=== PATIENT | female | born 1945 | race Caucasian/White ===

== ENCOUNTER 2020-07-06 17:53 | Emergency (ER) | payer MEDICARE ==
[2020-07-06] MEDS ORDERED: Sodium Chloride 0.9% 1000 ML 1,000 ML IV STA (18:22)
[2020-07-06] MEDS ORDERED: Sodium Chloride 0.9% 1000 ML 1,000 ML ONE (18:30)
--- NOTE | 2020-07-06 18:31 | ERPHSYRPT ---
- History of Present Illness Source: patient, family, EMS Exam Limitations: no limitations Patient Subjective Stated Complaint: Pt states "I was just sitting there and all a sudden felt weak. I had no pain, no shortness of breath, I just feel weak all over." Triage Nursing Assessment: Pt arrived via [facility]. Pt placed in room 4. Pt alert and oriented X 3, skin pwd Pt able to speak in clear full sentences pt in no apparent respiratory distress. Pt able to move all extremeties, no facial droop noted. Timing/Duration: today, resolved prior to arrival, sudden, improved Severity: moderate Modifying Factors: Improves With: nothing Associated Symptoms: weakness Hx Tetanus, Diphtheria Vaccination/Date Given: No Hx Influenza Vaccination/Date Given: Yes Hx Pneumococcal Vaccination/Date Given: Yes Immunizations Up to Date: Yes <LAURIE SINGH - Last Filed: 07/06/20 18:37> <ASHLEE RIVERA - Last Filed: 07/06/20 22:30> - History of Present Illness Time Seen by Provider: 07/06/20 18:16 Physician History: 74 years old female with history of hypertension, hyperlipidemia, coronary artery disease status post stenting, tobacco abuse, COPD presented in the ER via EMS with chief complaint of sudden onset generalized weakness with feeling of dizziness/lightheadedness as if she was going to pass out. She did not have any loss of consciousness although. Patient report it happened while she was sitting and all of a sudden she got sweaty and lightheaded. She checked her blood pressure at home and it was 90/40 which was kind of low for her. When EMS presentation her blood pressure is in 100 and after few minutes she started to feel better. She still feels generally weak but denies any focal numbness tingling or weakness. Denies any headache, blurry vision, difficulty speech, chest pain palpitations or shortness of breath before or after the episode of presyncope. She does have chronic sinus infection with some productive smoker cough which is not any worse than usual. (LAURIE SINGH) Allergies/Adverse Reactions: clarithromycin [From Biaxin] Allergy (Verified 04/19/16 10:45) codeine Allergy (Verified 04/19/16 10:45) Home Medications: Aspirin [Aspirin EC] 81 mg PO DAILY 08/13/15 [History] Furosemide 80 mg PO DAILY 08/13/15 [History] Isosorbide Mononitrate [Isosorbide Mononitrate ER] 30 mg PO HS 08/13/15 [History] Levothyroxine Sodium 137.5 mcg PO HS 08/13/15 [History] Magnesium Oxide 400 mg [Mag-Ox 400] 400 mg PO DAILY 08/13/15 [History] Metoprolol Succinate 25 mg Xl* [Toprol-Xl 25MG Tablets] 50 mg PO DAILY 08/13/15 [History] Multivitamin [Multivitamins] 1 each PO DAILY 08/13/15 [History] Potassium Chloride 20 Meq [Klor-Con 20 MEQ] 20 meq PO HS 08/13/15 [History] Vitamin E 400 Units [Vitamin E 400 UNIT SOFTGEL] 400 unit PO HS 08/13/15 [History] trandolapriL [Trandolapril] 4 mg PO DAILY 08/13/15 [History] Allopurinol 100 mg [Zyloprim 100 mg] 100 mg PO DAILY 03/29/16 [History] Hydralazine HCl 25 mg PO BID 03/29/16 [History] Metformin HCl 500 mg [Glucophage 500 MG] 500 mg PO BID 03/29/16 [History] Alendronate Sodium 70 mg [Fosamax 70 MG] 70 mg PO WEEKLY 07/06/20 [History] Amlodipine Besylate 5 mg [Norvasc 5 mg] 5 mg PO DAILY 07/06/20 [History] Atorvastatin Calcium 20 mg PO HS 07/06/20 [History] Biotin 5,000 mcg PO DAILY 07/06/20 [History] Cholecalciferol (Vitamin D3) [Vitamin D3] 25 mcg PO HS 07/06/20 [History] Duloxetine HCl 60 mg PO DAILY 07/06/20 [History] Ibuprofen 200 mg [Motrin 200 mg] 600 mg PO DAILY 07/06/20 [History] Ropinirole HCl [Ropinirole ER] 1 mg PO HS 07/06/20 [History] Travel Risk - International Travel Have you traveled outside of the country in past 3 weeks: No - Coronavirus Screening Are you exhibiting any of the following symptoms?: No Close contact with a COVID-19 positive Pt in past 14-21 Days: No <LAURIE SINGH - Last Filed: 07/06/20 18:37> - Review of Systems Constitutional: Weakness Eyes: No Symptoms Ears, Nose, & Throat: No Symptoms Respiratory: Cough Cardiac: No Symptoms Abdominal/Gastrointestinal: No Symptoms Genitourinary Symptoms: No Symptoms Musculoskeletal: No Symptoms Skin: No Symptoms Neurological: No Symptoms Psychological: No Symptoms Endocrine: No Symptoms Hematologic/Lymphatic: No Symptoms Immunological/Allergic: No Symptoms <LAURIE SINGH - Last Filed: 07/06/20 18:37> - Past Medical History Pertinent Past Medical History: Yes Neurological History: No Pertinent History ENT History: No Pertinent History Cardiac History: High Cholesterol, Hypertension Respiratory History: COPD, Other Endocrine Medical History: Diabetes Type II, Hypothyroidism Musculoskeletal History: No Pertinent History, Rheumatoid Arthritis GI Medical History: No Pertinent History History: No Pertinent History Psycho-Social History: No Pertinent History Female Reproductive Disorders: No Pertinent History Other Medical History: back pain, spina bifoda, cancer of the larnyx with radiation 2005 - Past Surgical History Past Surgical History: Yes Neuro Surgical History: No Pertinent History Cardiac: Cardiac Catheterization, Cardiac Stent Respiratory: No Pertinent History Gastrointestinal: Cholecystectomy Genitourinary: No Pertinent History Musculoskeletal: Orthopedic Surgery Female Surgical History: Hysterectomy, Tubal Ligation Other Surgical History: recontruction back, left knee, titanium elbow left arm, bladder anchors, carpel tunnel bilateral - Social History Smoking Status: Current every day smoker How long have you smoked: years Exposure to second hand smoke: Yes Drug Use: none Patient Lives Alone: No - Female History Hx Now: No <LAURIE SINGH - Last Filed: 07/06/20 18:37> - Physical Exam General Appearance: no apparent distress, alert Eye Exam: PERRL/EOMI, eyes nml inspection Ears, Nose, Throat Exam: TMs normal, pharyngeal erythema Neck Exam: normal inspection, non-tender, supple, full range of motion Respiratory Exam: normal breath sounds, lungs clear Cardiovascular Exam: regular rate/rhythm, normal heart sounds Gastrointestinal/Abdomen Exam: soft, normal bowel sounds, No tenderness, No distention Back Exam: normal inspection, normal range of motion Extremity Exam: normal inspection, normal range of motion Neurologic Exam: alert, oriented x 3, cooperative, battery loader II-XII nml as tested, normal mood/affect, nml cerebellar function, sensation nml Skin Exam: normal color SpO2 Interpretation: normal SpO2: 98 <LAURIE SINGH - Last Filed: 07/06/20 18:37> - Nursing Vital Signs Nursing Vital Signs: Initial Vital Signs Temperature 98.8 F 07/06/20 17:54 Pulse Rate 62 07/06/20 17:54 Respiratory Rate 20 07/06/20 17:54 Blood Pressure 110/62 07/06/20 17:54 O2 Sat by Pulse Oximetry 98 07/06/20 17:54 Pain Scale Pain Intensity 2 - Course Nursing assessment & vital signs reviewed: Yes EKG Interpreted by Me: RATE (60), Sinus Rhythm, Right Bundle Branch Block, Non- specific ST Changes - Radiology Exams Chest X-ray Interpretation: Teleradiologist Report (Questionable right lower lung airspace pneumonia. PA and lateral view would be helpful for further characterization if clinical symptoms dictate.) - CT Exams Abdomen/Pelvis CT Interpretation: Tele-radiologist Report (No evidence of acute intra-abdominal or pelvic pathology. See rest of report.) Head CT Interpretation: Tele-radiologist Report (No acute intracranial abnormality.) Chest CT Interpretation: Tele-radiologist Report (No evidence of central pulmonary embolus. There is breathing artifact which limits sensitivity of this examination to distal small emboli. Indeterminate consolidation in the right infrahilar region likely representing atelectasis. minimal bibasilar atelectasis.) <ASHLEE RIVERA - Last Filed: 07/06/20 22:30> Ordered Tests: Active Orders 24 hr Category Date Time Status Sales Support Specialist STAT Care 07/06/20 18:23 Active EKG-ER Only STAT Care 07/06/20 18:22 Active IV Insertion STAT Care 07/06/20 18:22 Active Orthostatic Vital Signs STAT Care 07/06/20 18:24 Active Oxygen-ED Only Nasal Cannula 2 lpm Care 07/06/20 19:52 Active Pulse Oximetry (ED) STAT Care 07/06/20 19:52 Active ABDOMEN AND PELVIS W/0 CONTRAS [CT] Stat Exams 07/06/20 19:40 Taken CHEST 1 VIEW (PORTABLE) Stat Exams 07/06/20 18:23 Taken CHEST WITH CONTRAST [CT] Stat Exams 07/06/20 20:21 Taken HEAD WITHOUT CONTRAST [CT] Stat Exams 07/06/20 19:42 Taken AMYLASE Stat Lab 07/06/20 18:30 Completed BLOOD CULTURE Stat Lab 07/06/20 20:11 Ordered CBC W DIFF Stat Lab 07/06/20 18:39 Completed CMP Stat Lab 07/06/20 18:39 Completed CULTURE,SPUTUM Stat Lab 07/06/20 22:18 Received CULTURE,URINE Stat Lab 07/06/20 18:44 Received D-DIMER QUANTITATIVE Stat Lab 07/06/20 18:30 Completed LIPASE Stat Lab 07/06/20 18:30 Completed Lactic Acid Stat Lab 07/06/20 18:35 Completed MAGNESIUM Stat Lab 07/06/20 18:39 Completed NT PRO BNP Stat Lab 07/06/20 18:39 Completed TROPONIN Q3H Lab 07/06/20 18:39 Completed TROPONIN Q3H Lab 07/06/20 20:11 Completed TROPONIN Q3H Lab 07/07/20 00:30 Ordered TROPONIN Q3H Lab 07/07/20 03:30 Ordered TROPONIN Q3H Lab 07/07/20 06:30 Ordered UA W/RFX UR CULTURE Stat Lab 07/06/20 18:44 Completed Medication Summary Discontinued Medications Generic Name Dose Route Start Last Admin Trade Name Freq PRN Reason Stop Dose Admin Sodium Chloride 1,000 mls @ 499 mls/hr 07/06/20 18:22 07/06/20 20:49 Sodium Chloride 0.9% 1000 Ml IV 07/06/20 20:22 Infused .Q2H1M STA Infusion Sodium Chloride Confirm 07/06/20 18:30 Sodium Chloride 0.9% 1000 Ml Administered 07/06/20 18:31 Dose 1,000 mls @ ud .ROUTE .STK-MED ONE Levofloxacin/Dextrose 750 mg in 150 mls @ 100 mls/hr 07/06/20 18:48 07/06/20 20:50 Levofloxacin 750mg/150ml D5w IV 07/06/20 20:17 Infused STAT STA Infusion Levofloxacin/Dextrose Confirm 07/06/20 18:56 Levofloxacin 750mg/150ml D5w Administered 07/06/20 18:57 Dose 750 mg in 150 mls @ ud IV .STK-MED ONE Lab/Rad Data: Laboratory Result Diagrams 07/06/20 18:39 07/06/20 18:39 Laboratory Results 07/06/20 07/06/20 07/06/20 Range/Units 20:11 18:44 18:39 WBC (4.0-10.5) K/mm3 RBC (4.1-5.4) M/mm3 Hgb (12.0-16.0) gm/dl Hct (35-47) % MCV (78-100) fl MCH (26-32) pg MCHC (32-36) g/dl RDW (11.5-14.0) % Plt Count (150-450) K/mm3 MPV (7.5-11.0) fl Gran % (36.0-66.0) % Eos # (Auto) (0-0.5) Absolute Lymphs (auto) (1.0-4.6) Absolute Monos (auto) (0.0-1.3) Lymphocytes % (24.0-44.0) % Monocytes % (0.0-12.0) % Eosinophils % (0.00-5.0) % Basophils % (0.0-0.4) % Absolute Granulocytes (1.4-6.9) Basophils # (0-0.4) D-Dimer (215-500) ng/mL Sodium (137-145) mmol/L Potassium (3.5-5.1) mmol/L Chloride (98-107) mmol/L Carbon Dioxide (22-30) mmol/L Anion Gap (5-15) MEQ/L BUN (7-17) mg/dL Creatinine (0.52-1.04) mg/dL Estimated GFR ML/MIN Glucose (74-106) mg/dL Lactic Acid (0.4-2.0) Calcium (8.4-10.2) mg/dL Magnesium (1.6-2.3) mg/dL Total Bilirubin (0.2-1.3) mg/dL AST (14-36) U/L ALT (0-35) U/L Alkaline Phosphatase (38-126) U/L Troponin I < 0.012 < 0.012 (0.000-0.034) ng/mL NT-Pro-B Natriuret Pep (0-900) pg/mL Serum Total Protein (6.3-8.2) g/dL Albumin (3.5-5.0) g/dL Amylase (30-110) U/L Lipase (23-300) U/L Urine Color YELLOW (YELLOW) Urine Appearance SLIGHTLY CLOUDY (CLEAR) Urine pH 6.0 (5-6) Ur Specific [place] 1.016 (1.005-1.025) Urine Protein 30 (Negative) Urine Ketones NEGATIVE (NEGATIVE) Urine Blood SMALL (0-5) Gustavo/ul Urine Nitrite NEGATIVE (NEGATIVE) Urine Bilirubin NEGATIVE (NEGATIVE) Urine Urobilinogen NEGATIVE (0-1) mg/dL Ur Leukocyte Esterase NEGATIVE (NEGATIVE) Urine WBC (Auto) 0-2 (0-5) /HPF Urine RBC (Auto) 0-2 (0-2) /HPF U Hyaline Cast (Auto) 11-25 (0-2) /LPF U Epithel Cells (Auto) FEW (FEW) /HPF Urine Bacteria (Auto) NONE SEEN (NEGATIVE) /HPF Other Casts (Auto) NEGATIVE (NEGATIVE) /LPF Urine Mucus (Auto) SLIGHT (NEGATIVE) /HPF Urine Culture Reflexed YES (NO) Urine Glucose NEGATIVE (NEGATIVE) mg/dL 07/06/20 07/06/20 07/06/20 Range/Units 18:39 18:39 18:35 WBC 10.1 (4.0-10.5) K/mm3 RBC 3.84 L (4.1-5.4) M/mm3 Hgb 10.6 L (12.0-16.0) gm/dl Hct 34.6 L (35-47) % MCV 90.1 (78-100) fl MCH 27.6 (26-32) pg MCHC 30.6 L (32-36) g/dl RDW 14.0 (11.5-14.0) % Plt Count 195 (150-450) K/mm3 MPV 10.9 (7.5-11.0) fl Gran % 87.1 H (36.0-66.0) % Eos # (Auto) 0.06 (0-0.5) Absolute Lymphs (auto) 0.87 L (1.0-4.6) Absolute Monos (auto) 0.36 (0.0-1.3) Lymphocytes % 8.6 L (24.0-44.0) % Monocytes % 3.6 (0.0-12.0) % Eosinophils % 0.6 (0.00-5.0) % Basophils % 0.1 (0.0-0.4) % Absolute Granulocytes 8.80 H (1.4-6.9) Basophils # 0.01 (0-0.4) D-Dimer (215-500) ng/mL Sodium 138 (137-145) mmol/L Potassium 4.0 (3.5-5.1) mmol/L Chloride 107 (98-107) mmol/L Carbon Dioxide 25 (22-30) mmol/L Anion Gap 10.0 (5-15) MEQ/L BUN 15 (7-17) mg/dL Creatinine 0.75 (0.52-1.04) mg/dL Estimated GFR > 60.0 ML/MIN Glucose 102 (74-106) mg/dL Lactic Acid 1.6 (0.4-2.0) Calcium 9.0 (8.4-10.2) mg/dL Magnesium 2.3 (1.6-2.3) mg/dL Total Bilirubin 0.20 (0.2-1.3) mg/dL AST 19 (14-36) U/L ALT 10 (0-35) U/L Alkaline Phosphatase 78 (38-126) U/L Troponin I (0.000-0.034) ng/mL NT-Pro-B Natriuret Pep 1290 H (0-900) pg/mL Serum Total Protein 6.6 (6.3-8.2) g/dL Albumin 3.6 (3.5-5.0) g/dL Amylase (30-110) U/L Lipase (23-300) U/L Urine Color (YELLOW) Urine Appearance (CLEAR) Urine pH (5-6) Ur Specific [place] (1.005-1.025) Urine Protein (Negative) Urine Ketones (NEGATIVE) Urine Blood (0-5) Gustavo/ul Urine Nitrite (NEGATIVE) Urine Bilirubin (NEGATIVE) Urine Urobilinogen (0-1) mg/dL Ur Leukocyte Esterase (NEGATIVE) Urine WBC (Auto) (0-5) /HPF Urine RBC (Auto) (0-2) /HPF U Hyaline Cast (Auto) (0-2) /LPF U Epithel Cells (Auto) (FEW) /HPF Urine Bacteria (Auto) (NEGATIVE) /HPF Other Casts (Auto) (NEGATIVE) /LPF Urine Mucus (Auto) (NEGATIVE) /HPF Urine Culture Reflexed (NO) Urine Glucose (NEGATIVE) mg/dL 07/06/20 07/06/20 Range/Units 18:30 18:30 WBC (4.0-10.5) K/mm3 RBC (4.1-5.4) M/mm3 Hgb (12.0-16.0) gm/dl Hct (35-47) % MCV (78-100) fl MCH (26-32) pg MCHC (32-36) g/dl RDW (11.5-14.0) % Plt Count (150-450) K/mm3 MPV (7.5-11.0) fl Gran % (36.0-66.0) % Eos # (Auto) (0-0.5) Absolute Lymphs (auto) (1.0-4.6) Absolute Monos (auto) (0.0-1.3) Lymphocytes % (24.0-44.0) % Monocytes % (0.0-12.0) % Eosinophils % (0.00-5.0) % Basophils % (0.0-0.4) % Absolute Granulocytes (1.4-6.9) Basophils # (0-0.4) D-Dimer 852 H* (215-500) ng/mL Sodium (137-145) mmol/L Potassium (3.5-5.1) mmol/L Chloride (98-107) mmol/L Carbon Dioxide (22-30) mmol/L Anion Gap (5-15) MEQ/L BUN (7-17) mg/dL Creatinine (0.52-1.04) mg/dL Estimated GFR ML/MIN Glucose (74-106) mg/dL Lactic Acid (0.4-2.0) Calcium (8.4-10.2) mg/dL Magnesium (1.6-2.3) mg/dL Total Bilirubin (0.2-1.3) mg/dL AST (14-36) U/L ALT (0-35) U/L Alkaline Phosphatase (38-126) U/L Troponin I (0.000-0.034) ng/mL NT-Pro-B Natriuret Pep (0-900) pg/mL Serum Total Protein (6.3-8.2) g/dL Albumin (3.5-5.0) g/dL Amylase 75 (30-110) U/L Lipase 269 (23-300) U/L Urine Color (YELLOW) Urine Appearance (CLEAR) Urine pH (5-6) Ur Specific [place] (1.005-1.025) Urine Protein (Negative) Urine Ketones (NEGATIVE) Urine Blood (0-5) Gustavo/ul Urine Nitrite (NEGATIVE) Urine Bilirubin (NEGATIVE) Urine Urobilinogen (0-1) mg/dL Ur Leukocyte Esterase (NEGATIVE) Urine WBC (Auto) (0-5) /HPF Urine RBC (Auto) (0-2) /HPF U Hyaline Cast (Auto) (0-2) /LPF U Epithel Cells (Auto) (FEW) /HPF Urine Bacteria (Auto) (NEGATIVE) /HPF Other Casts (Auto) (NEGATIVE) /LPF Urine Mucus (Auto) (NEGATIVE) /HPF Urine Culture Reflexed (NO) Urine Glucose (NEGATIVE) mg/dL <LAURIE SINGH - Last Filed: 07/06/20 18:37> - Progress Progress: unchanged, improved Counseled pt/family regarding: lab results, need for follow-up, rad results <ASHLEE RIVERA - Last Filed: 07/06/20 22:30> - Progress Progress Note: 07/06/20 18:47 Work-up is pending, care is transferred to Dr. Rivera at shift change for final disposition. (LAURIE SINGH) 07/06/20 19:[address] Rivera @ 1930: perrl, eomi, pharynx pink, lungs clear, 3/6 systolic murmur, moderate mid abdominal tenderness with normotonic & mildly hyperactive B.S., no ankle edema, alert & cooperative, full rom & strength of all extremities, decreased sensation of right foot(ongoing). Pt states she had had sharp intermittent mid abdominal pain for the past 3.5 hours lasting up to 10 minutes up to 7/10 in intensity. (ASHLEE RIVERA) <LAURIE SINGH - Last Filed: 07/06/20 18:37> - Departure Departure Disposition: Home Critical Care Time: No <ASHLEE RIVERA - Last Filed: 07/06/20 22:30> - Departure Clinical Impression: Weakness, Dizziness, Abdominal pain Condition: Stable Referrals: JAYNE SCHREIBER [Primary Care Provider] - Instructions: Dizziness, Nonvertigo, (DC) Additional Instructions: Follow up with private doctor tomorrow.
[2020-07-06 18:43] LABS: BASOPHIL % 0.1 % (0.0-0.4); Basophil (Absolute #) 0.01 (0-0.4); Eosinophil % 0.6 % (0.00-5.0); Eosinophil (Absolute #) 0.06 (0-0.5); Hematocrit 34.6 % (35-47); Hemoglobin 10.6 gm/dl (12.0-16.0); Lymphocyte (Absolute #) 0.87 (1.0-4.6); Lymphocytes % 8.6 % (24.0-44.0); Mean Cell Volume 90.1 fl (78-100); Mean Corpuscular Hemoglobin 27.6 pg (26-32); Mean Corpuscular Hgb Concent. 30.6 g/dl (32-36); Mean Platelet Volume 10.9 fl (7.5-11.0); Monocyte (Absolute #) 0.36 (0.0-1.3); Monocytes % 3.6 % (0.0-12.0); Neutrophil % 87.1 % (36.0-66.0); Platelet Count 195 K/mm3 (150-450); Red Blood Count 3.84 M/mm3 (4.1-5.4); White Blood Count 10.1 K/mm3 (4.0-10.5)
[2020-07-06] MEDS ORDERED: LEVOFLOXACIN 750MG/150ML D5W 750 MG/150 ML BAG IV STA (18:48)
[2020-07-06 18:53] LABS: Appearance SLIGHTLY CLOUDY (CLEAR); Bilirubin NEGATIVE (NEGATIVE); Blood SMALL Ery/ul (0-5); Epithelial Cells FEW /HPF (FEW); Glucose NEGATIVE (NEGATIVE); Ketones NEGATIVE (NEGATIVE); Leukocyte Esterase NEGATIVE (NEGATIVE); Mucus SLIGHT /HPF (NEGATIVE); Nitrite NEGATIVE (NEGATIVE); Protein,Urine Dip 30 (Negative); RBC 0-2 /HPF (0-2); Specific Gravity 1.016 (1.005-1.025); Urobilinogen NEGATIVE mg/dL (0-1); WBC 0-2 /HPF (0-5)
[2020-07-06 18:54] LABS: Bacteria NONE SEEN /HPF (NEGATIVE)
[2020-07-06] MEDS ORDERED: LEVOFLOXACIN 750MG/150ML D5W 750 MG/150 ML BAG IV ONE (18:56)
[2020-07-06 19:04] LABS: ALBUMIN 3.6 g/dL (3.5-5.0); ALKALINE PHOSPHATASE 78 U/L (38-126); BLOOD UREA NITROGEN 15 mg/dL (7-17); CHLORIDE 107 mmol/L (98-107); Carbon Dioxide 25 mmol/L (22-30); Creatinine 1 0.75 mg/dL (0.52-1.04); EST GLOMERULAR FILTRATION RATE > 60.0 ML/MIN; Glucose 102 mg/dL (74-106); MAGNESIUM 2.3 mg/dL (1.6-2.3); NT PRO BNP 1290 pg/mL (0-900); SGOT/AST 19 U/L (14-36); SGPT/ALT 10 U/L (0-35); SODIUM 138 mmol/L (137-145); Total Protein 6.6 g/dL (6.3-8.2)
[2020-07-06 19:51] LABS: AMYLASE 75 U/L (30-110); LIPASE 269 U/L (23-300)
[2020-07-06 22:05] VITALS: BP 129/58; PULSE 67; O2SAT 97
--- NOTE | 2020-07-07 08:47 | XRAY ---
Indication: Diaphoresis, dizziness, and weakness. Multiple contiguous axial images obtained through the head without contrast. Comparison: June 16, 2016. Again age-appropriate global atrophy, minimal periventricular degenerative micro-ischemia, and remote lacunar infarct right caudate head. No acute intracranial hemorrhage, abnormal extra-axial fluid collection, or mass effect. Fourth ventricle is midline without hydrocephalus. Sanchez-white matter differentiation preserved. Bony calvarium intact. Visualized paranasal sinuses and mastoid air cells are clear. Impression: Nonacute senile brain with again right caudate head remote lacunar infarct. Comment: Preliminary interpretation was made by [facility]. No critical discrepancy.
--- NOTE | 2020-07-07 08:51 | XRAY ---
Indication: Diaphoresis, dizziness, , and elevated d-dimer weakness. Multiple contiguous axial images obtained through the chest using 80 cc Isovue 370 contrast and PE protocol. Comparison: Conventional CT chest January 24, 2017. There is good opacification of the pulmonary arteries to include the lobar and segmental branches. No pulmonary embolus. Heart is borderline enlarged. Aorta is normal in course and caliber with mild calcifications. Stable large right paratracheal calcified node. No pathologic mediastinal/hilar lymphadenopathy. Lungs again demonstrates mild bilateral dependent atelectasis with worsening bibasilar subsegmental atelectasis/scarring. New right upper lobe calcified granulomas. No effusion. Bony thorax intact. CT abdomen/pelvis reported separately. Impression: 1. Negative pulmonary embolus. Worsening bibasilar subsegmental atelectasis/scarring. 2. Again borderline cardiomegaly and old granulomatous disease. 3. No acute cardiopulmonary abnormalities. Comment: Preliminary interpretation was made by [facility]. No critical discrepancy.
--- NOTE | 2020-07-07 08:54 | XRAY ---
Indication: Weakness. Comparison: September 06, 2010. Portable chest demonstrates new right infrahilar infiltrate versus atelectasis. Remaining heart and left lung unremarkable with stable incidental mitral valve calcifications and peritracheal calcified node. Bony thorax intact again with mild osteopenia.
--- NOTE | 2020-07-07 09:04 | XRAY ---
Indication: Abdomen pain and diaphoresis. Multiple contiguous axial images obtained through the abdomen and pelvis without contrast as ordered. Comparison: CT abdomen only July 29, 2016. CT chest reported separately. Noncontrasted stomach and bowel loops appear nonobstructed. There is again mild/moderate diffuse scattered colonic fecal debris throughout. No free fluid/air. There remains hepatic/splenic calcific granulomas, 13 cm splenomegaly, left renal cyst, and cholecystectomy. Hysterectomy not previously imaged. Remaining liver, pancreas, spleen, adrenal glands, kidneys, ureters, and bladder appear unremarkable for noncontrast exam. Again moderate scattered vascular calcifications without AAA. Osseous structures intact again with osteopenia, mild/moderate multilevel thoracolumbar spondylosis, and L3-L5 laminectomy. Impression: 1. Continue diffuse fecal stasis. 2. Again incidental splenomegaly, left renal cyst, chronic bony findings, and old granulomatous disease. 3. No new or acute intra-abdominal/pelvic abnormalities on this noncontrast exam. Comment: Preliminary interpretation was made by [facility]. No critical discrepancy.
== END 2020-07-06 22:39 | disposition home or self-care (01) ==
LOC: ED 17:53
DX: R53.1 Weakness (principal); R42 Dizziness and giddiness; R10.9 Unspecified abdominal pain; Z79.899 Other long term (current) drug therapy; I10 Essential (primary) hypertension; E03.9 Hypothyroidism, unspecified; J44.9 Chronic obstructive pulmonary disease, unspecified; M06.9 Rheumatoid arthritis, unspecified
CPT/HCPCS: 36000; 36415; 70450; 71045; 71260; 74176; 80053; 81001; 82150; 83605; 83690; 83735; 83880; 84484; 85025; 85379; 87040; 87070; 87077; 87086; 87186; 93005; 93041; 94760; 96360; 96361; 96365; 96374; 99285; J1956

== ENCOUNTER 2020-07-08 21:09 | Emergency (ER) | payer MEDICARE ==
--- NOTE | 2020-07-08 21:36 | ERPHSYRPT ---
- History of Present Illness Time Seen by Provider: 07/08/20 21:30 Source: patient Physician History: Patient is a 74-year-old female presents to our ED for evaluation of a head laceration. Patient was at home in her kitchen cooking when she tripped on a toy left on the floor behind her. Patient fell backward and hit her head on the floor. No LOC. No neck pain. C-spine cleared clinically. Patient states the fall was mechanical. She did not have any associated neurologic or cardiovascu lar symptomology. No chest pain or shortness of breath. No associated numbness tingling or weakness. Pain at this point is minimal. Patient declined pain medication. Patient states she has some photosensitivity but otherwise feels well. at bedside. They voiced no other complaints or concerns at this time. Occurred: just prior to arrival Reason for Fall: tripped Injuries/Pain Location: head Loss of Consciousness: no loss of consciousness Quality: aching Severity of Pain-Max: moderate Severity of Pain-Current: mild Modifying Factors: Improves With: nothing Associated Symptoms (Fall): denies symptoms, No confusion, No chest pain, No dizziness, No extremity injury, No headache, No lightheadedness, No muscle spasms, No nausea, No neck pain, No ringing in ears, No seizures, No shortness of breath, No slurred speech, No trouble walking, No vomiting, No vision changes Allergies/Adverse Reactions: clarithromycin [From Biaxin] Allergy (Verified 07/08/20 21:45) codeine Allergy (Verified 07/08/20 21:45) Home Medications: Aspirin [Aspirin EC] 81 mg PO DAILY 08/13/15 [History] Furosemide 80 mg PO DAILY 08/13/15 [History] Isosorbide Mononitrate [Isosorbide Mononitrate ER] 30 mg PO HS 08/13/15 [History] Levothyroxine Sodium 137.5 mcg PO HS 08/13/15 [History] Magnesium Oxide 400 mg [Mag-Ox 400] 400 mg PO DAILY 08/13/15 [History] Metoprolol Succinate 25 mg Xl* [Toprol-Xl 25MG Tablets] 50 mg PO DAILY 08/13/15 [History] Multivitamin [Multivitamins] 1 each PO DAILY 08/13/15 [History] Potassium Chloride 20 Meq [Klor-Con 20 MEQ] 20 meq PO HS 08/13/15 [History] Vitamin E 400 Units [Vitamin E 400 UNIT SOFTGEL] 400 unit PO HS 08/13/15 [History] trandolapriL [Trandolapril] 4 mg PO DAILY 08/13/15 [History] Allopurinol 100 mg [Zyloprim 100 mg] 100 mg PO DAILY 03/29/16 [History] Hydralazine HCl 25 mg PO BID 03/29/16 [History] Metformin HCl 500 mg [Glucophage 500 MG] 500 mg PO BID 03/29/16 [History] Alendronate Sodium 70 mg [Fosamax 70 MG] 70 mg PO WEEKLY 07/06/20 [History] Amlodipine Besylate 5 mg [Norvasc 5 mg] 5 mg PO DAILY 07/06/20 [History] Atorvastatin Calcium 20 mg PO HS 07/06/20 [History] Biotin 5,000 mcg PO DAILY 07/06/20 [History] Cholecalciferol (Vitamin D3) [Vitamin D3] 25 mcg PO HS 07/06/20 [History] Duloxetine HCl 60 mg PO DAILY 07/06/20 [History] Ibuprofen 200 mg [Motrin 200 mg] 600 mg PO DAILY 07/06/20 [History] Ropinirole HCl [Ropinirole ER] 1 mg PO HS 07/06/20 [History] Hx Tetanus, Diphtheria Vaccination/Date Given: No Hx Influenza Vaccination/Date Given: Yes Hx Pneumococcal Vaccination/Date Given: Yes Travel Risk - International Travel Have you traveled outside of the country in past 3 weeks: No - Coronavirus Screening Are you exhibiting any of the following symptoms?: No - Review of Systems Constitutional: No Symptoms, No Fever, No Chills Eyes: No Symptoms Ears, Nose, & Throat: No Symptoms Respiratory: No Symptoms, No Cough, No Dyspnea Cardiac: No Symptoms, No Chest Pain, No Edema, No Syncope Abdominal/Gastrointestinal: No Symptoms, No Abdominal Pain, No Nausea, No Vomiting, No Diarrhea Genitourinary Symptoms: No Symptoms, No Dysuria Musculoskeletal: No Symptoms, No Back Pain, No Neck Pain Skin: No Symptoms, No Rash Neurological: No Symptoms, No Dizziness, No Focal Weakness, No Sensory Changes Psychological: No Symptoms Endocrine: No Symptoms Hematologic/Lymphatic: No Symptoms Immunological/Allergic: No Symptoms All Other Systems: Reviewed and Negative - Past Medical History Pertinent Past Medical History: Yes Neurological History: No Pertinent History ENT History: No Pertinent History Cardiac History: High Cholesterol, Hypertension Respiratory History: COPD, Other Endocrine Medical History: Diabetes Type II, Hypothyroidism Musculoskeletal History: No Pertinent History, Rheumatoid Arthritis GI Medical History: No Pertinent History History: No Pertinent History Psycho-Social History: No Pertinent History Female Reproductive Disorders: No Pertinent History Other Medical History: back pain, spina bifoda, cancer of the larnyx with radiation 2005 - Past Surgical History Past Surgical History: Yes Neuro Surgical History: No Pertinent History Cardiac: Cardiac Catheterization, Cardiac Stent Respiratory: No Pertinent History Gastrointestinal: Cholecystectomy Genitourinary: No Pertinent History Musculoskeletal: Orthopedic Surgery Female Surgical History: Hysterectomy, Tubal Ligation Other Surgical History: recontruction back, left knee, titanium elbow left arm, bladder anchors, carpel tunnel bilateral - Social History Smoking Status: Current every day smoker How long have you smoked: years Exposure to second hand smoke: Yes Drug Use: none Patient Lives Alone: No - Nursing Vital Signs Nursing Vital Signs: Initial Vital Signs Temperature 97.7 F 07/08/20 21:20 Pulse Rate 69 07/08/20 21:20 Respiratory Rate 16 07/08/20 21:20 Blood Pressure 151/75 07/08/20 21:20 O2 Sat by Pulse Oximetry 96 07/08/20 21:20 Pain Scale Pain Intensity 2 - Jose Coma Score Best Eye Response (Jose): (4) open spontaneously Best Verbal Response ([place]): (5) oriented Best Motor Response (Jose): (6) obeys commands [place] Total: 15 - Physical Exam General Appearance: no apparent distress, alert Head Injury: no evidence of injury Eye Exam: PERRL/EOMI ENT Exam: airway nml Neck Exam: normal inspection, No tenderness Respiratory/Chest Exam: normal breath sounds, No chest tenderness, No respiratory distress Cardiovascular Exam: normal heart sounds, regular rate/rhythm Gastrointestinal Exam: soft, No tenderness, No distention, No guarding, No ecchymosis Back Exam: normal inspection, No vertebral tenderness Extremity Exam: normal inspection, normal range of motion, pelvis stable, No deformities Neurologic Exam: alert, oriented x 3, cooperative, cad operator II-XII nml as tested, sensation nml, No motor deficits, No sensory deficit, No disoriented, No confusion, No agitation, No uncooperative, No intoxicated appearance, No motor weakness, No facial droop, No slurred speech, No aphasia, No dysarthria, No abnormal gait, No abnormal cerebellar tests, No abnormal cad operator II-XII Skin Exam: normal color, warm, dry SpO2 Interpretation: normal SpO2: 96 O2 Delivery: Room Air Procedures - Laceration/Wound Repair Posterior Head Wound Location: head Wound Length (cm): 2 Wound's Depth, Shape: linear Wound Explored: clean Irrigated: Yes Hibiclens Prep: Yes Wound Debrided: No wound debridement Wound Repaired With: [place] Number of Sutures: 3 Layer Closure?: No Sterile Dressing Applied?: No Splint Applied?: No Sling Applied?: No Progress: 07/08/20 22:32 Wound located posterior parietal scalp. Patient declined local anesthesia. 3 lg applied. Patient tolerated procedure well. CT negative for acute intracranial pathology. Repeat neuro exam within normal limits. - Course Nursing assessment & vital signs reviewed: Yes - CT Exams Head CT Interpretation: Tele-radiologist Report (No acute intracranial pathology per radiology report.) Ordered Tests: Active Orders 24 hr Category Date Time Status HEAD WITHOUT CONTRAST [CT] Stat Exams 07/08/20 21:34 Taken - Progress Progress: improved Progress Note: 07/08/20 22:33 Patient reassessed. She feels well. Patient claimed pain medication. CT negative for acute intracranial pathology. Wound irrigated. Patient declined local anesthesia. Wound repaired with 3 lg. No debridement required. Repeat neuro exam within normal limits. Patient requesting discharge. Will discharge home. Patient advised that lg should be removed in 7 to 10 days. Patient will call her primary care doctor tomorrow to schedule a follow-up gilbert ointment within 48 hours. at bedside. They voiced no other complaints or concerns at this time. In light of patient's photophobia patient may have a concussion. Concussion precautions discussed and provided to patient. 07/08/20 22:34 Counseled pt/family regarding: diagnosis, need for follow-up, rad results - Departure Departure Disposition: Home Clinical Impression: Concussion, Scalp laceration Condition: Stable Critical Care Time: No Referrals: JAYNE SCHREIBER [Primary Care Provider] - Instructions: Concussion, Adult (DC) Additional Instructions: Discharge/Care Plan RORY FRANCES was seen on 07/08/20 in the Emergency Room. The patient was counseled regarding Diagnosis,Lab results, Imaging studies, need for follow up and when to return to the Emergency Room. Prescriptions given: Discharge Note I have spoken with the patient and/or caregivers. I have explained the patient's condition, diagnosis and treatment plan based on the information available to me at this time. I have answered the patient's and/or caregiver's questions and addressed any concerns. The patient and/or caregivers have as good understanding of the patient's diagnosis, condition and treatment plan as can be expected at this point. The vital signs have been stable. The patient's condition is stable and appropriate for discharge from the emergency department. The patient will pursue further outpatient evaluation with the primary care physician or other designated or consulting physician as outlined in the discharge instructions. The patient and/or caregivers are agreeable to this plan of care and follow-up instructions have been explained in detail. The patient and/or caregivers have received these instruction. The patient/and or caregivers are aware that any significant change in condition or worsening of symptoms should prompt an immediate return to this or the closest emergency department or call 911.
[2020-07-08 21:45] VITALS: O2SAT 96
[2020-07-08 23:20] VITALS: BP 159/78; PULSE 60
--- NOTE | 2020-07-09 08:49 | XRAY ---
Indication: Posterior laceration following fall. Multiple contiguous axial images obtained through the head without contrast. Comparison: July 06, 2020. Stable age-appropriate global atrophy, minimal periventricular degenerative micro-ischemia, and right caudate head remote lacunar infarct. Again no acute intracranial hemorrhage, abnormal extra-axial fluid collection, or mass effect. Fourth ventricle is midline. Bony calvarium intact. Visualized paranasal sinuses and mastoid air cells are clear. Impression: Continued nonacute senile brain with right caudate head remote lacunar infarct.
== END 2020-07-08 23:21 | disposition home or self-care (01) ==
LOC: ED 21:09
DX: S06.0X0A Concussion without loss of consciousness, initial encounter (principal); W01.198A Fall on same level from slipping, tripping and stumbling with subsequent striking against other object, initial encounter; Y93.G3 Activity, cooking and baking; Y92.000 Kitchen of unspecified non-institutional (private) residence as the place of occurrence of the external cause; S01.01XA Laceration without foreign body of scalp, initial encounter; Z79.899 Other long term (current) drug therapy; I10 Essential (primary) hypertension; J44.9 Chronic obstructive pulmonary disease, unspecified; E11.9 Type 2 diabetes mellitus without complications; E03.9 Hypothyroidism, unspecified; M06.9 Rheumatoid arthritis, unspecified; Z72.0 Tobacco use
CPT/HCPCS: 12001; 70450; 99283

== ENCOUNTER 2024-07-18 11:09 | Emergency (ER) | payer MEDICARE ==
[2024-07-18 11:26] VITALS: TEMP 97
[2024-07-18] MEDS ORDERED: MORPHINE SULFATE 4 MG INJ ONE (12:14)
[2024-07-18] MEDS: MORPHINE SULFATE 4 MG INJ IM ONE (12:15)
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
[2024-07-18 13:31] VITALS: BP 126/51; PULSE 65; RESP 31
--- NOTE | 2024-07-18 13:35 | XRAY ---
Indication: Status post fall. Multiple contiguous axial images obtained through the head without contrast. Comparison: July 08, 2020 Again age-appropriate global atrophy, mild periventricular degenerative micro-ischemia bilaterally, and remote lacunar infarct right caudate head. No acute intracranial hemorrhage, abnormal extra-axial fluid collection, or mass effect. Fourth ventricle is midline without hydrocephalus people bony calvarium intact. Visualized paranasal sinuses and mastoid air cells are clear. Impression: Continued nonacute senile brain with right caudate head remote lacunar infarct.
--- NOTE | 2024-07-18 13:37 | XRAY ---
Indication: Status post fall. Multiple contiguous axial images obtained through the cervical spine. Sagittal and coronal reformatted images obtained. Comparison: None Osseous structures demineralized. Axial images negative for acute fracture, suspicious bony lesions, or spinal canal stenosis. Minimal/mild C4-C7 degenerative endplate spurring greatest at C6-C7. Also mild multilevel bilateral degenerative facet hypertrophy. Sagittal and coronal reformatted images demonstrates lordotic straightening, positional versus paraspinal spasm. Also minimal dextroscoliosis centered at C5. Minimal 1-2 mm anterolisthesis of C4 on C5 on C6. No acute compression fracture or jumped facet. Normal appearing craniocervical junction. Visualized noncontrasted soft tissues demonstrates mild bilateral carotid calcifications. Impression: 1. Cervical lordotic straightening, positional versus paraspinal spasm. 2. Negative acute fracture. 3. Chronic findings including osteopenia, multilevel degenerative spondylosis, grade 1 anterolisthesis C4 on C5 on C6, and bilateral carotid calcifications.
--- NOTE | 2024-07-18 13:39 | XRAY ---
Indication: Pain following fall. Comparison: July 09, 2024 AP pelvis and 2 view right hip unchanged again demonstrating osteopenia, moderate right hip degenerative arthropathy, mild/moderate lower lumbar degenerative spondylosis, moderate scattered vascular calcifications, and incidental bilateral gluteal calcified injection granulomas. No new/acute abnormalities.
--- NOTE | 2024-07-18 13:41 | XRAY ---
Indication: Pain following fall. Comparison: None 3 view right knee demonstrates osteopenia, minimal/mild tricompartmental degenerative changes greatest medial compartment, tiny posterior fabella, and mild scattered vascular calcifications. No other bony, articular, or soft tissue abnormalities.
--- NOTE | 2024-07-18 13:42 | XRAY ---
Indication: Pain following fall. Person: August 26, 2014 3 view right ankle again demonstrates osteopenia and tiny spurring medial malleolus/lateral malleolus/calcaneus. New mild diffuse scattered vascular calcifications. No other bony, articular, or soft tissue abnormalities.
[2024-07-18 14:07] VITALS: O2SAT 94
[2024-07-18] MEDS ORDERED: TYLENOL EXTRA STRENGTH 500 MG ONE (14:09)
[2024-07-18] MEDS: TYLENOL EXTRA STRENGTH 500 MG PO STA (14:11)
== END 2024-07-18 15:04 | disposition home or self-care (01) ==
LOC: ED 11:09
DX: Z04.3 Encounter for examination and observation following other accident (principal); S70.01XA Contusion of right hip, initial encounter; S00.83XA Contusion of other part of head, initial encounter; W03.XXXA Other fall on same level due to collision with another person, initial encounter; Y92.000 Kitchen of unspecified non-institutional (private) residence as the place of occurrence of the external cause; M25.571 Pain in right ankle and joints of right foot; M25.561 Pain in right knee; E78.5 Hyperlipidemia, unspecified; I10 Essential (primary) hypertension; E11.9 Type 2 diabetes mellitus without complications; Z79.891 Long term (current) use of opiate analgesic; Z79.899 Other long term (current) drug therapy; Z72.0 Tobacco use; Z59.19 Other inadequate housing
CPT/HCPCS: 70450; 72125; 73502; 73562; 73610; 96372; 99284; J2270; A9270-GY